=== PATIENT | male | born 1995 | race Hispanic/Latino ===

== ENCOUNTER 2019-04-13 09:26 | Emergency (ER) | payer SELFPAY ==
[2019-04-13] MEDS ORDERED: ONDANSETRON 4 MG/2 ML VIAL ONE (10:23)
[2019-04-13] MEDS ORDERED: FAMOTIDINE 20 MG/2 ML VIAL IV ONE (10:24)
[2019-04-13 10:40] LABS: Absolute Monocytes 0.9 K/uL (0.1-1.3); Absolute Neutrophil 12.1 K/uL (1.8-8.0); Basophils % 0.4 % (0-1.3); Eosinophils % 0.3 % (0-4.4); Lymphocytes % 7.2 % (15.3-44.8); MPV 10.1 fL (7.6-11.3); Monocytes % 6.5 % (3.3-12.3); RBC Red Blood Cell Count 5.01 M/uL (4.33-5.43)
[2019-04-13 11:08] LABS: ALT/SGPT 24 U/L (12-78); AST/SGOT 16 U/L (15-37); Albumin 4.5 g/dL (3.4-5.0); Alkaline Phosphatase 68 U/L (45-117); BUN Blood Urea Nitrogen 19 mg/dL (7-18); Bicarbonate 28 mmol/L (21-32); Bilirubin Direct 0.1 mg/dL (0-0.2); Bilirubin Total 0.9 mg/dL (0.2-1.0); Glucose Level 82 mg/dL (74-106); Lipase 99 U/L (73-393); Protein, Total 7.6 g/dL (6.4-8.2); Sodium Level 140 mmol/L (136-145)
--- NOTE | 2019-04-13 11:30 | RAD REPORT ---
EXAM DESCRIPTION: CTAbdomen Pelvis W Contrast - 04/13/2019 11:17 am CLINICAL HISTORY: Abdominal pain. EPIGASTRIC PAIN COMPARISON: No comparisons TECHNIQUE: Biphasic CT imaging of the abdomen and pelvis was performed with 100 ml non-ionic IV cont rast. All CT scans are performed using dose optimization technique as appropriate and may include automated exposure control or mA/KV adjustment according to patient size. FINDINGS: The lung bases are clear. The liver, spleen, pancreas, adrenal glands and kidneys are within normal limits. No bowel obstruction, free air, free fluid or abscess. Several mildly thickened and prominent lower a bdominal small bowel loops noted. The appendix is normal. No evidence of significant lymphadenopathy . No suspicious bony findings. IMPRESSION: Several mildly thickened and prominent small bowel loops in the lower abdomen noted, magdalena picious for enteritis.
[2019-04-13] MEDS ORDERED: NA CHLORIDE 0.9% 1,000 ML ONE (12:07)
[2019-04-13] MEDS ORDERED: KETOROLAC 30 MG/ML INJ ONE (12:07)
[2019-04-13] MEDS ORDERED: METRONIDAZOLE 500mg IVPB 500 MG/100 ML BAG IV ONE (12:07)
--- NOTE | 2019-04-13 12:07 | ER ---
Nurse's Notes [facility] Name: Roberto Black Age: 23 yrs Sex: Male : 1995 Arrival Date: 04/13/2019 Time: 09:28 Bed 2 Private MD: Diagnosis: Upper abdominal pain, unspecified Presentation: 04/13 09:42 Presenting complaint: Patient states: feels a bad squeezing pain in med abd, iw intermittent, started this morning, denies n/v/d, denies fever. Transition of care: patient was not received from another setting of care. Onset of symptoms was April 13, 2019. Risk Assessment: Do you want to hurt yourself or someone else? Patient reports no desire to harm self or others. Initial Sepsis Screen: Does the patient meet any 2 criteria? No. Patient's initial sepsis screen is negative. Does the patient have a suspected source of infection? No. Patient's initial sepsis screen is negative. Care prior to arrival: None. 09:42 Method Of Arrival: Ambulatory iw 09:42 Acuity: PHILIP 3 iw Historical: - Allergies: 09:43 No Known Allergies; iw - Home Meds: 09:43 None [Active]; iw - PMHx: 09:43 None; iw - PSHx: 09:43 None; iw - Immunization history:: Adult Immunizations not up to date. - Social history:: Smoking status: Patient/guardian denies using tobacco. - Ebola Screening: : Patient negative for fever greater than or equal to 101.5 degrees Fahrenheit, and additional compatible Ebola Virus Disease symptoms Patient denies exposure to infectious person Patient denies travel to an Ebola-affected area in the 21 days before illness onset No symptoms or risks identified at this time. Screenin:58 Abuse screen: Denies threats or abuse. Nutritional screening: No deficits noted. tw2 Tuberculosis screening: No symptoms or risk factors identified. Fall Risk None identified. Assessment: 10:21 General: Appears in no apparent distress. comfortable, well groomed, well developed, sg well nourished, Behavior is calm, cooperative, appropriate for age. Pain: Complains of pain in epigastric area Quality of pain is described as aching. Neuro: Level of Consciousness is awake, alert, obeys commands, Oriented to person, place, time, Moves all extremities. Speech is normal, Facial symmetry appears normal, Pupils are PERRLA. Cardiovascular: Heart tones S1 S2 present Capillary refill is brisk in bilateral fingers Patient's skin is warm and dry. Chest pain is denied. Respiratory: Airway is patent Respiratory effort is even, unlabored, Respiratory pattern is regular, symmetrical. GI: Abdomen is round non-distended, Bowel sounds present X 4 quads. Abd is soft and non tender X 4 quads. : No signs and/or symptoms were reported regarding the genitourinary system. EENT: No signs and/or symptoms were reported regarding the EENT system. Derm: Skin is intact, is healthy with good turgor, Skin is dry, Skin is normal, Skin temperature is warm. Musculoskeletal: No signs and/or symptoms reported regarding the musculoskeletal system. 11:43 Reassessment: Patient appears in no apparent distress at this time. No changes from tw2 previously documented assessment. Patient and/or family updated on plan of care and expected duration. Pain level reassessed. Patient is alert, oriented x 3, equal unlabored respirations, skin warm/dry/pink. 12:39 Reassessment: Patient appears in no apparent distress at this time. Patient and/or sg family updated on plan of care and expected duration. Pain level reassessed. Patient is alert, oriented x 3, equal unlabored respirations, skin warm/dry/pink. awaiting IV abx to complete infusion prior to dc to home as ordered Patient states feeling better. 13:24 Reassessment: Patient appears in no apparent distress at this time. No changes from tw2 previously documented assessment. Patient and/or family updated on plan of care and expected duration. Pain level reassessed. Patient is alert, oriented x 3, equal unlabored respirations, skin warm/dry/pink. Patient states feeling better. Vital Signs: 09:43 BP 140 / 61; Pulse 66; Resp 16; Temp 98.3; Pulse Ox 100% on R/A; Weight 82.55 kg; iw Height 5 ft. 5 in. (165.10 cm); Pain 9/10; 10:45 BP 128 / 56; Pulse 60; Resp 17; Pulse Ox 100% on R/A; tw2 11:41 BP 129 / 72; Pulse 56; Resp 17; Pulse Ox 100% on R/A; tw2 12:47 Temp 98.2; sg 13:24 BP 124 / 68; Pulse 52; Resp 17; Pulse Ox 100% ; Pain 6/10; tw2 09:43 Body Mass Index 30.29 (82.55 kg, 165.10 cm) iw ED Course: 09:28 Patient arrived in ED. rg4 09:43 Triage completed. iw 09:43 Arm band placed on. iw 09:58 Khurram Cuevas PA is PHCP. cp 09:58 Ramesh Fofana MD is Attending Physician. cp 09:58 Bed in low position. Call light in reach. tw2 10:15 Initial lab(s) drawn, by me, sent to lab. Inserted saline lock: 20 gauge in left sg antecubital area, using aseptic technique. Blood collected. 10:20 Juve Baltazar, RN is Primary Nurse. sg 11:[address] via wheelchair. 11:16 CT completed. Patient tolerated procedure well. Patient moved to CT via wheelchair. Patient moved back from CT. 11:18 CT Abd/Pelvis - W/Contrast: no oral contrast In Process Unspecified. EDMS 12:05 Francisco Manuel MD is Referral Physician. cp 13:24 No provider procedures requiring assistance completed. IV discontinued, intact, tw2 bleeding controlled, No redness/swelling at site. Pressure dressing applied. Administered Medications: 10:20 Drug: Pepcid 20 mg Route: IVP; Site: left antecubital; sg 11:40 Follow up: Response: No adverse reaction sg 10:20 Drug: Zofran 4 mg Route: IVP; Site: left antecubital; sg 11:00 Follow up: Response: No adverse reaction sg 11:55 Drug: NS 0.9% 1000 ml Route: IV; Rate: 1 bolus; Site: left antecubital; sg 13:20 Follow up: Response: No adverse reaction; IV Status: Completed infusion; IV Intake: tw2 1000ml 11:55 Drug: TORadol - Ketorolac 15 mg Route: IVP; Site: left antecubital; sg 13:24 Follow up: Response: No adverse reaction; Pain is decreased tw2 11:55 Drug: metroNIDAZOLE 500 mg Volume: 100 ml; Route: IVPB; Infused Over: 30 mins; Site: sg left antecubital; 13:20 Follow up: Response: No adverse reaction; IV Status: Completed infusion tw2 Intake: 13:20 IV: 1000ml; Total: 1000ml. tw2 Outcome: 12:06 Discharge ordered by . sonu 13:24 Discharged to home ambulatory, with family. tw2 13:24 Condition: stable 13:24 Discharge instructions given to patient, family, Instructed on discharge instructions, follow up and referral plans. no drinking with medication, no driving heavy equipment, medication usage, Demonstrated understanding of instructions, follow-up care, medications, Prescriptions given X 4. 13:25 Patient left the ED. tw2 Signatures: Dispatcher [employer] EDJuve Mo, RN Amita Bearden Irene RN Khurram Neumann, Katlyn Jacobsen cp, RN RN tw2 Jaquelin Love rg4
--- NOTE | 2019-04-13 12:08 | EDPHYS ---
Physician Documentation [facility] Name: Roberto Black Age: 23 yrs Sex: Male : 1995 Arrival Date: 04/13/2019 Time: 09:28 Bed 2 Private MD: ED Physician Ramesh Fofana HPI: 04/13 10:10 This 23 yrs old Male presents to ER via Ambulatory with complaints of cp Abdominal Pain. 10:10 The patient presents with abdominal pain in the upper abdomen. Onset: The cp symptoms/episode began/occurred this morning. The symptoms do not radiate. Associated signs and symptoms: Pertinent negatives: nausea, vomiting, and diarrhea, anorexia, blood in stools, dysuria, fever, testicular pain. The symptoms are described as squeezing. Modifying factors: the symptoms are aggravated by lying flat. Historical: - Allergies: 09:43 No Known Allergies; iw - Home Meds: :43 None [Active]; iw - PMHx: :43 None; iw - PSHx: 09:43 None; iw - Immunization history:: Adult Immunizations not up to date. - Social history:: Smoking status: Patient/guardian denies using tobacco. - Ebola Screening: : Patient negative for fever greater than or equal to 101.5 degrees Fahrenheit, and additional compatible Ebola Virus Disease symptoms Patient denies exposure to infectious person Patient denies travel to an Ebola-affected area in the 21 days before illness onset No symptoms or risks identified at this time. ROS: 10:15 Constitutional: Negative for body aches, chills, fever, poor PO intake. cp 10:15 Eyes: Negative for injury, pain, redness, and discharge. cp 10:15 ENT: Negative for drainage from ear(s), ear pain, sore throat, difficulty swallowing, difficulty handling secretions. 10:15 Cardiovascular: Negative for chest pain, edema, palpitations. 10:15 Respiratory: Negative for cough, shortness of breath, wheezing. 10:15 Abdomen/GI: Positive for abdominal pain, of the epigastric area, Negative for vomiting, diarrhea, constipation, anorexia, black/tarry stool, rectal bleeding. 10:15 Back: Negative for pain at rest, pain with movement, radiated pain. 10:15 : Negative for urinary symptoms, testicular pain 10:15 Skin: Negative for rash. 10:15 Neuro: Negative for altered mental status, headache, weakness. 10:15 All other systems are negative. Exam: 10:20 Constitutional: The patient appears in no acute distress, alert, awake, comfortable, cp non-diaphoretic, non-toxic, well developed, well nourished. 10:20 Head/Face: Normocephalic, atraumatic. cp 10:20 Eyes: Periorbital structures: appear normal, Conjunctiva: normal, no exudate, no injection, Sclera: no appreciated abnormality, Lids and lashes: appear normal, bilaterally. 10:20 ENT: External ear(s): are unremarkable, Nose: is normal, Mouth: Lips: moist, Oral mucosa: pink and intact, moist, Posterior pharynx: is normal, airway is patent, no erythema, no exudate, Voice: is normal. 10:20 Neck: ROM/movement: is normal, is supple, without pain, no range of motions limitations, no nuchal rigidity. 10:20 Chest/axilla: Inspection: normal, Palpation: is normal, no crepitus, no tenderness. 10:20 Cardiovascular: Rate: normal, Rhythm: regular. 10:20 Respiratory: the patient does not display signs of respiratory distress, Respirations: normal, no use of accessory muscles, no retractions, no splinting, no tachypnea, labored breathing, is not present, Breath sounds: are clear throughout, no decreased breath sounds, no stridor, no wheezing. 10:20 Abdomen/GI: Inspection: abdomen appears normal, Bowel sounds: active, all quadrants, Palpation: soft, in all quadrants, moderate abdominal tenderness, in the epigastric area, rebound tenderness, is not appreciated, involuntary guarding, is not appreciated. 10:20 Back: pain, is absent, ROM is normal. 10:20 Skin: no rash present. Vital Signs: 09:43 BP 140 / 61; Pulse 66; Resp 16; Temp 98.3; Pulse Ox 100% on R/A; Weight 82.55 kg; iw Height 5 ft. 5 in. (165.10 cm); Pain 9/10; 10:45 BP 128 / 56; Pulse 60; Resp 17; Pulse Ox 100% on R/A; tw2 11:41 BP 129 / 72; Pulse 56; Resp 17; Pulse Ox 100% on R/A; tw2 12:47 Temp 98.2; sg 13:24 BP 124 / 68; Pulse 52; Resp 17; Pulse Ox 100% ; Pain 6/10; tw2 09:43 Body Mass Index 30.29 (82.55 kg, 165.10 cm) iw MDM: 10:04 Patient medically screened. cp 12:05 Data reviewed: vital signs, nurses notes, lab test result(s), radiologic studies, CT cp scan, I have discussed the patient's presentation/case with the attending Emergency Department Physician; and as a result, I will discharge patient. 04/13 10:06 Order name: Basic Metabolic Panel; Complete Time: 11:18 cp 04/13 11:18 Interpretation: Normal except: BUN 19. cp 04/13 10:06 Order name: CBC with Diff; Complete Time: 12:59 cp 04/13 11:18 Interpretation: Normal except: WBC 14.1; AMARA% 85.6; LYM% 7.2; NEUT A 12.1. cp 04/13 10:06 Order name: Creatinine for Radiology; Complete Time: 11:18 cp 04/13 10:06 Order name: Hepatic Function; Complete Time: 11:18 cp 04/13 10:06 Order name: Lipase; Complete Time: 11:18 cp 04/13 12:35 Order name: CBC Smear Scan; Complete Time: 12:59 EDMS 04/13 12:59 Interpretation: Reviewed. cp 04/13 10:06 Order name: IV Saline Lock; Complete Time: 10:24 cp 04/13 10:06 Order name: Labs collected and sent; Complete Time: 10:24 cp 04/13 11:05 Order name: CT Abd/Pelvis - W/Contrast: no oral contrast; Complete Time: 11:33 cp Administered Medications: 10:20 Drug: Pepcid 20 mg Route: IVP; Site: left antecubital; sg 11:40 Follow up: Response: No adverse reaction sg 10:20 Drug: Zofran 4 mg Route: IVP; Site: left antecubital; sg 11:00 Follow up: Response: No adverse reaction sg 11:55 Drug: NS 0.9% 1000 ml Route: IV; Rate: 1 bolus; Site: left antecubital; sg 13:20 Follow up: Response: No adverse reaction; IV Status: Completed infusion; IV Intake: tw2 1000ml 11:55 Drug: TORadol - Ketorolac 15 mg Route: IVP; Site: left antecubital; sg 13:24 Follow up: Response: No adverse reaction; Pain is decreased tw2 11:55 Drug: metroNIDAZOLE 500 mg Volume: 100 ml; Route: IVPB; Infused Over: 30 mins; Site: sg left antecubital; 13:20 Follow up: Response: No adverse reaction; IV Status: Completed infusion tw2 Disposition: 04/13/19 12:06 Discharged to Home. Impression: Upper abdominal pain, unspecified. - Condition is Stable. - Discharge Instructions: Abdominal Pain, Adult. - Prescriptions for Tylenol- Codeine #3 300-30 mg Oral Tablet - take 2 tablets by ORAL route every 6 hours As needed; 15 tablet. Zofran 4 mg Oral Tablet - take 1 tablet by ORAL route every 12 hours As needed; 20 tablet. Cipro 500 mg Oral Tablet - take 1 tablet by ORAL route every 12 hours for 10 days; 20 tablet. Metronidazole 500 mg Oral Tablet - take 1 tablet by ORAL route every 8 hours; 30 tablet. - Medication Reconciliation Form, Thank You Letter, Antibiotic Education, Prescription Opioid Use, Work release form form. - Follow up: Francisco Manuel MD; When: 1 week; Reason: Recheck today's complaints. Follow up: Private Physician; When: 1 - 2 days; Reason: Recheck today's complaints. - Problem is new. - Symptoms have improved. Signatures: Dispatcher [employer] EDJuve Mo RN RN sg Williams, Irene, RN RN iw Page, Corey, PA PA cp Wise, Tara RN RN tw2 Corrections: (The following items were deleted from the chart) 13:25 12:06 04/13/2019 12:06 Discharged to Home. Impression: Upper abdominal pain, tw2 unspecified. Condition is Stable. Forms are Work release form, Medication Reconciliation Form, Thank You Letter, Antibiotic Education, Prescription Opioid Use. Follow up: Francisco Manuel; When: 1 week; Reason: Recheck today's complaints. Follow up: Private Physician; When: 1 - 2 days; Reason: Recheck today's complaints. Problem is new. Symptoms have improved. cp
[2019-04-13 12:34] LABS: Blood Morphology Comment NOT SEEN (NOT SEEN); Platelet Estimate ADEQ; Urine White Blood Cell Casts OK
[2019-04-13 21:46] VITALS: O2SAT 100
[2019-04-13 21:50] VITALS: TEMP 98.2
[2019-04-13 21:51] VITALS: BP 124/68
== END 2019-04-13 13:25 | disposition home or self-care (01) ==
LOC: ER 09:26
DX: R10.13 Epigastric pain (principal)
CPT/HCPCS: 36415; 74177; 80048; 80076; 83690; 85025; J2405; J7030; Q9967

== ENCOUNTER 2022-08-10 16:12 | Emergency (ER) | payer SELFPAY ==
[2022-08-10] MEDS ORDERED: ACETAMINOPHEN 500 MG TAB ONE (17:18)
--- NOTE | 2022-08-10 19:11 | ER ---
Nurse's Notes [facility] Name: Roberto Black Age: 27 yrs Sex: Male : 1995 Arrival Date: 08/10/2022 Time: 16:13 Bed 10 Private MD: Diagnosis: Streptococcal pharyngitis Presentation: 08/10 16:49 Chief complaint: Patient states: Sore throat, PAREDES, body aches, fever, congestion x 1 jl7 day, home covid test was negative. Coronavirus screen: Vaccine status: Patient reports receiving the 2nd dose of the covid vaccine. chills, congestion, fatigue, fever, headache, Client presents with at least one sign or symptom that may indicate coronavirus-19. Standard/surgical mask placed on the client. Provider contacted for isolation considerations. Ebola Screen: No symptoms or risks identified at this time. Initial Sepsis Screen: Does the patient meet any 2 criteria? No. Patient's initial sepsis screen is negative. Does the patient have a suspected source of infection? No. Patient's initial sepsis screen is negative. Risk Assessment: Do you want to hurt yourself or someone else? Patient reports no desire to harm self or others. Onset of symptoms was August 09, 2022. Care prior to arrival: None. 16:49 Method Of Arrival: [facility] 16:49 Acuity: PHILIP 3 jl7 Triage Assessment: 16:51 General: Appears in no apparent distress. uncomfortable, ill, Behavior is calm, jl7 cooperative, appropriate for age. Pain: Complains of pain in body aches. Historical: - Allergies: 16:51 No Known Allergies; jl7 - Home Meds: 16:51 None [Active]; jl7 - PMHx: 16:51 None; jl7 - PSHx: 16:51 None; jl7 - Immunization history:: Client reports receiving the 2nd dose of the Covid vaccine. - Social history:: Smoking status: Patient denies any tobacco usage or history of. Screenin:00 Abuse screen: Denies threats or abuse. Denies injuries from another. Nutritional hb screening: No deficits noted. Tuberculosis screening: No symptoms or risk factors identified. Fall Risk None identified. Assessment: 17:00 General: Appears in no apparent distress. Behavior is calm, cooperative. Pain: Denies hb pain. Neuro: Level of Consciousness is awake, alert, obeys commands, Oriented to person, place, time, situation. Cardiovascular: Patient's skin is warm and dry. Respiratory: Reports cough that is non-productive, Respiratory effort is even, unlabored, Respiratory pattern is regular, symmetrical. GI: No signs and/or symptoms were reported involving the gastrointestinal system. : No signs and/or symptoms were reported regarding the genitourinary system. EENT: Reports sore throat, sinus congestion. Derm: Skin is pink, warm \\T\\ dry. Musculoskeletal: Reports body aches. Vital Signs: 16:49 BP 145 / 60; Pulse 107; Resp 17; Temp 103.4; Pulse Ox 99% ; Weight 88 kg; Height 5 ft. jl7 5 in. (165.10 cm); Pain 7/10; 16:49 Body Mass Index 32.28 (88.00 kg, 165.10 cm) jl7 ED Course: 16:13 Patient arrived in ED. mr 16:32 Bakari Asif is PHCP. jl9 16:32 Khurram Sheehan MD is Attending Physician. jl9 16:51 Triage completed. jl7 16:51 Arm band placed on right wrist. jl7 16:55 Flu Sent. kc6 16:55 SARS-COV-2 RT PCR (Document "Date of Onset" if Symptomatic) Sent. kc6 16:55 Strep Sent. kc6 16:59 Azalea Castrejon, RN is Primary Nurse. hb 17:00 Patient has correct armband on for positive identification. hb 19:41 No provider procedures requiring assistance completed. Patient did not have IV access hb during this emergency room visit. Administered Medications: 17:02 Drug: Acetaminophen 1000 mg Route: PO; hb 19:18 Drug: Rocephin (cefTRIAXone) 1 grams Route: IM; Site: left deltoid; hb 19:18 Drug: Dexamethasone 10 mg Route: IM; Site: right deltoid; hb Medication: 17:00 VIS not applicable for this client. hb Outcome: 19:11 Discharge ordered by . jl9 19:41 Discharged to home ambulatory, with significant other. hb 19:41 Condition: stable 19:41 Discharge instructions given to patient, Instructed on discharge instructions, follow up and referral plans. medication usage, Demonstrated understanding of instructions, follow-up care, medications, Prescriptions given X 1. 19:41 Patient left the ED. hb Signatures: Pily Flores Heather RN RN hb Mary Lindquist RN RN jl7 Bakari Asif9 Che Smart6
--- NOTE | 2022-08-10 19:11 | EDPHYS ---
Physician Documentation [facility] Name: Roberto Black Age: 27 yrs Sex: Male : 1995 Arrival Date: 08/10/2022 Time: 16:13 Bed 10 Private MD: ED Physician Khurram Sheehan HPI: 08/10 18:06 This 27 yrs old Male presents to ER via Ambulatory with complaints of Sore jl9 throat, headache, fever, and body aches. . 18:06 Onset: The symptoms/episode began/occurred yesterday. Associated signs and symptoms: jl9 Pertinent positives: fever, headache, sore throat. Modifying factors: The patient symptoms are alleviated by nothing, the patient symptoms are aggravated by nothing. The patient has not experienced similar symptoms in the past. Historical: - Allergies: 16:51 No Known Allergies; jl7 - Home Meds: 16:51 None [Active]; jl7 - PMHx: 16:51 None; jl7 - PSHx: 16:51 None; jl7 - Immunization history:: Client reports receiving the 2nd dose of the Covid vaccine. - Social history:: Smoking status: Patient denies any tobacco usage or history of. ROS: 18:06 Neck: Negative for injury, pain, and swelling, Cardiovascular: Negative for chest pain, jl9 palpitations, and edema. 18:06 Abdomen/GI: Negative for abdominal pain, nausea, vomiting, diarrhea, and constipation, Back: Negative for injury and pain, : Negative for injury, bleeding, discharge, and swelling, MS/Extremity: Negative for injury and deformity, Skin: Negative for injury, rash, and discoloration. 18:06 Neuro: Negative for headache, weakness, numbness, tingling, and seizure, Psych: Negative for depression, anxiety, suicide ideation, homicidal ideation, and hallucinations, Allergy/Immunology: Negative for hives, rash, and allergies, Endocrine: Negative for neck swelling, polydipsia, polyuria, polyphagia, and marked weight changes, Hematologic/Lymphatic: Negative for swollen nodes, abnormal bleeding, and unusual bruising. 18:06 Constitutional: Positive for body aches, fever. 18:06 ENT: Positive for sore throat. 18:06 Respiratory: Positive for cough. Exam: 18:07 Constitutional: This is a well developed, well nourished patient who is awake, alert, jl9 and in no acute distress. Head/Face: Normocephalic, atraumatic. Eyes: Pupils equal round and reactive to light, extra-ocular motions intact. Lids and lashes normal. Conjunctiva and sclera are non-icteric and not injected. Cornea within normal limits. Periorbital areas with no swelling, redness, or edema. 18:07 Neck: Trachea midline, no thyromegaly or masses palpated, and no cervical lymphadenopathy. Supple, full range of motion without nuchal rigidity, or vertebral point tenderness. No Meningismus. Chest/axilla: Normal chest wall appearance and motion. Nontender with no deformity. No lesions are appreciated. Cardiovascular: Regular rate and rhythm with a normal S1 and S2. No gallops, murmurs, or rubs. Normal PMI, no JVD. No pulse deficits. Respiratory: Lungs have equal breath sounds bilaterally, clear to auscultation and percussion. No rales, rhonchi or wheezes noted. No increased work of breathing, no retractions or nasal flaring. Abdomen/GI: Soft, non-tender, with normal bowel sounds. No distension or tympany. No guarding or rebound. No evidence of tenderness throughout. Back: No spinal tenderness. No costovertebral tenderness. Full range of motion. Skin: Warm, dry with normal turgor. Normal color with no rashes, no lesions, and no evidence of cellulitis. MS/ Extremity: Pulses equal, no cyanosis. Neurovascular intact. Full, normal range of motion. Neuro: Awake and alert, GCS 15, oriented to person, place, time, and situation. Cranial nerves II-XII grossly intact. Motor strength 5/5 in all extremities. Sensory grossly intact. Cerebellar exam normal. Normal gait. Psych: Awake, alert, with orientation to person, place and time. Behavior, mood, and affect are within normal limits. 18:07 ENT: External ear(s): are unremarkable, Ear canal(s): are normal, TM's: are normal, Nose: is normal, Mouth: is normal, Posterior pharynx: erythema, that is moderate. Vital Signs: 16:49 BP 145 / 60; Pulse 107; Resp 17; Temp 103.4; Pulse Ox 99% ; Weight 88 kg; Height 5 ft. jl7 5 in. (165.10 cm); Pain 06/08; 16:49 Body Mass Index 32.28 (88.00 kg, 165.10 cm) jl7 MDM: 16:32 Patient medically screened. jl9 18:07 Data reviewed: vital signs, nurses notes. jl9 19:10 Counseling: I had a detailed discussion with the patient and/or guardian regarding: the jl9 historical points, exam findings, and any diagnostic results supporting the discharge/admit diagnosis, lab results, the need for outpatient follow up, to return to the emergency department if symptoms worsen or persist or if there are any questions or concerns that arise at home. 19:10 Response to treatment: the patient's symptoms have markedly improved after treatment. jl9 08/10 16:33 Order name: Flu; Complete Time: 18:37 jl9 08/10 16:33 Order name: SARS-COV-2 RT PCR (Document "Date of Onset" if Symptomatic) jl9 08/10 16:49 Order name: Strep; Complete Time: 18:37 jl9 Administered Medications: 17:02 Drug: Acetaminophen 1000 mg Route: PO; hb 19:18 Drug: Rocephin (cefTRIAXone) 1 grams Route: IM; Site: left deltoid; hb 19:18 Drug: Dexamethasone 10 mg Route: IM; Site: right deltoid; hb Disposition Summary: 08/10/22 19:11 Discharge Ordered Location: Home jl9 Condition: Stable jl9 Diagnosis - Streptococcal pharyngitis jl9 Followup: jl9 - With: Private Physician - When: 1 - 2 days - Reason: Recheck today's complaints, Continuance of care, Re-evaluation by your physician Discharge Instructions: - Discharge Summary Sheet jl9 - Strep Throat, Adult jl9 Forms: - Medication Reconciliation Form jl9 - Thank You Letter jl9 - Work release form hb - Antibiotic Education jl9 - Prescription Opioid Use jl9 Prescriptions: - Amoxicillin 875 mg Oral Tablet - take 1 tablet by ORAL route every 12 hours for 10 days; 20 tablet; Refills: 0, jl9 Product Selection Permitted Signatures: Dispatcher [employer] Azalea Chatman RN RN Mary Ann RN RN jl7 Bakari Asif jl9
[2022-08-10] MEDS ORDERED: LIDOCAINE 1% MPF 2 ML AMPULE ONE (19:16)
[2022-08-10] MEDS ORDERED: CEFTRIAXONE 1000 MG/VIAL ONE (19:16)
[2022-08-10] MEDS ORDERED: dexAMETHasone 10 MG/ML VIAL ONE (19:16)
[2022-08-10 20:07] VITALS: BP 145/60; TEMP 103.4; O2SAT 99
== END 2022-08-10 19:41 | disposition home or self-care (01) ==
LOC: ER 16:12
DX: J02.0 Streptococcal pharyngitis (principal); Z20.822 Contact with and (suspected) exposure to COVID-19
CPT/HCPCS: 87081; 87804; 96372; 99283; J1100; U0003